=== PATIENT | male | born 1985 | race Caucasian/White ===

== ENCOUNTER → 2020-07-05 07:17 | Outpatient (BNVA) | payer MEDICAID, SELFPAY | PROVIDERS: Visit Provider Nurse Practitioner | DX: Z20.828 Contact with and (suspected) exposure to other viral communicable diseases (principal) | CPT/HCPCS: 87635 ==

== ENCOUNTER 2021-11-20 13:23 | Emergency (ER) | payer MEDICAID, SELFPAY ==
[2021-11-20 13:37] VITALS: BP 149/90; PULSE 101; RESP 16; TEMP 36.7; O2SAT 100; BMI 26.4
--- NOTE | 2021-11-20 14:54 | W.ED.ABDPA2 ---
HPI - Abdominal Pain General: Chief Complaint: Abdominal Pain Stated Complaint: ABD Pain, hard feeling, trouble using restroom Time Seen by Provider: 11/20/21 14:41 Source: patient Mode of arrival: ambulatory Limitations: no limitations History of Present Illness: 36-year-old male presents complaining of abdominal pain nausea. He has episodes intermittently over the last several years. He has been seen for it was started on nausea medicines. Has not had any fever sweats chills no vomiting or diarrhea he does get cramping with it. He notes it is better if he bends over. He does have loose stools associated with it but no hematochezia melena hematemesis or coffee-ground emesis. No dysuria urgency or frequency no hematuria MD elicited complaint: abdominal pain Onset (ago): year(s) (1) Pain Consistency: intermittent Location: Diffuse Severity: mild Quality: cramping Radiation: none Exacerbating factors: other (Laying flat) Relieving factors: other (Bending over) Associated Symptoms: Reports bloating, change in stool character, GI cramping and loose stools; Denies anorexia, belching, change in bowel habits, chills, coffee ground emesis, constipation, diarrhea, dyspepsia, dysuria, excessive flatus, fever(s), heartburn, hematochezia, hematuria, hematemesis, fecal incontinence, melena, nausea, poor appetite, syncope and vomiting Review of Systems Const: Denies: fever(s) or chills ENMT: Denies: throat pain, ear or mastoid pain, nasal discharge or nasal congestion Card: Denies: syncope Resp: Denies: dyspnea, productive cough or non-productive cough GI: Reports: bloating, GI cramping and change in stool character; Denies: nausea, vomiting, hematemesis, coffee ground emesis, heartburn, diarrhea, constipation, belching, excessive flatus, fecal incontinence, change in bowel habits, hematochezia or melena : Denies: dysuria or hematuria Skin/Breast: Denies: rash or pruritus PFSH ED PFSH: Medical History (Updated 11/23/21 @ 10:15 by Howard Thomas DO) Chronic abdominal pain Surgical History (Updated 11/23/21 @ 10:15 by Howard Thomas DO) No pertinent past surgical history Physical Exam Const: GENERAL APPEARANCE: cooperative and comfortable ORIENTATION/CONSCIOUSNESS: Yes awake, Yes oriented to person, Yes oriented to place and Yes oriented to time HENMT: COMMON NORMALS: normocephalic, atraumatic and hearing grossly normal bilaterally HEAD & SCALP: normocephalic and atraumatic Neck/C-Spine: COMMON NORMALS: no JVD Resp: COMMON NORMALS: normal respiratory effort, No retractions, No use of accessory muscles and clear to auscultation bilaterally AUSCULTATION: clear to auscultation bilaterally Cardio: COMMON NORMALS: no JVD, regular rate, regular rhythm and No murmurs present (Cardio) RATE: regular rate RHYTHM: regular rhythm GI: COMMON NORMALS: Soft to palpation and No hepatosplenomegaly present AUSCULTATION: Yes normoactive bowel sounds PALPATION: Yes Soft to palpation, No Tenderness to palpation present (GI), No Guarding due to palpation present (GI) and Yes No hepatosplenomegaly present Extremity: COMMON NORMALS: normal to inspection, capillary refill normal, no clubbing, cyanosis or edema, no calf tenderness and no pedal edema Neuro: SENSORIUM/ORIENTATION: Yes oriented to person, Yes oriented to place and Yes oriented to time Skin: COMMON NORMALS: no rashes or lesions noted GENERAL SKIN EXAM: no rashes or lesions noted Course Vital Signs: Vital signs: Vital Signs Temperature 98.0 F 11/20/21 13:37 Pulse Rate 96 11/20/21 16:29 Respiratory Rate 16 11/20/21 16:29 Blood Pressure 145/88 11/20/21 14:55 Pulse Oximetry 100 11/20/21 16:29 MDM - Abdominal Pain Medical Decision Making And toPatient at this point chronic abdominal pain is start him on a PPI can use emetics as needed bland diet follow-up with primary care or surgery he may benefit from HIDA scan or EGD or further evaluation. Does not appear to be any acute issues at hand at the moment fizzing worsening change symptoms return Medical Records I reviewed the patient's medical records. Lab Data I reviewed the patient's lab results. : 11/20/21 14:52 11/20/21 14:52 Labs/Radiology: Laboratory Results WBC 14.9 10^3/uL (4.0-10.0) H 11/20/21 14:52 RBC 5.61 10^6/uL (4.1-5.3) H 11/20/21 14:52 Hgb 16.8 g/dL (11.7-16.6) H 11/20/21 14:52 Hct 49.1 % (42.0-52.0) 11/20/21 14:52 MCV 87.5 fl (80-94) 11/20/21 14:52 MCH 29.9 pg (28.0-34.0) 11/20/21 14:52 MCHC 34.2 g/dL (30.0-36.0) 11/20/21 14:52 RDW 12.5 % (12.1-15.1) 11/20/21 14:52 Plt Count 325 10^3/cmm (130-400) 11/20/21 14:52 MPV 9.7 fL (7.4-10.4) 11/20/21 14:52 Neut % (Auto) 80.7 % 11/20/21 14:52 Lymph % (Auto) 12.7 % 11/20/21 14:52 [place] % (Auto) 5.7 % 11/20/21 14:52 Eos % (Auto) 0.3 % 11/20/21 14:52 Baso % (Auto) 0.2 % 11/20/21 14:52 Neut # (Auto) 12.05 10^3/uL (1.8-7.7) H 11/20/21 14:52 Lymph # (Auto) 1.9 10^3/uL (0.8-4.8) 11/20/21 14:52 [place] # (Auto) 0.9 10^3/uL (0.2-0.9) 11/20/21 14:52 Eos # (Auto) 0.1 10^3/uL (0.0-0.8) 11/20/21 14:52 Baso # (Auto) 0.0 10^3/uL (0.0-0.1) 11/20/21 14:52 Nucleated RBC % (auto) 0 % 11/20/21 14:52 Nucleated RBCs # 0.0 /100WBC 11/20/21 14:52 Sodium 137 mmol/L (136-145) 11/20/21 14:52 Potassium 4.1 mmol/L (3.5-5.1) 11/20/21 14:52 Chloride 101 mmol/L (98-107) 11/20/21 14:52 Carbon Dioxide 24 mmol/L (22-29) 11/20/21 14:52 Anion Gap 16.1 (5-19) 11/20/21 14:52 BUN 9 mg/dL (6-20) 11/20/21 14:52 Creatinine 1.0 mg/dL (0.7-1.2) 11/20/21 14:52 GFR Calculation 85.5 mL/min (90-130) L 11/20/21 14:52 Glucose 115 mg/dL (65-115) 11/20/21 14:52 Calculated Osmolality 284 mOsm/kg (285-295) L 11/20/21 14:52 Calcium 8.8 mg/dL (8.5-10.5) 11/20/21 14:52 Total Bilirubin 0.7 mg/dL (0.15-1.2) 11/20/21 14:52 AST 15 U/L (0-40) 11/20/21 14:52 ALT 20 U/L (0-41) 11/20/21 14:52 Alkaline Phosphatase 65 IU/L (40-130) 11/20/21 14:52 Total Protein 7.0 g/dL (6.6-8.7) 11/20/21 14:52 Albumin 4.7 g/dL (3.5-5.2) 11/20/21 14:52 Globulin 2.3 g/dL (1.3-4.6) 11/20/21 14:52 Lipase 13 U/L (13-60) 11/20/21 14:52 Urine Color Yellow (Yellow) 11/20/21 14:52 Urine Appearance Clear (CLEAR) 11/20/21 14:52 Urine pH 6.5 (5-7) 11/20/21 14:52 Ur Specific [place] 1.005 (1.005-1.030) 11/20/21 14:52 Urine Protein Neg (Negative) 11/20/21 14:52 Urine Glucose (UA) Norm (Normal) 11/20/21 14:52 Urine Ketones Negative (Negative) 11/20/21 14:52 Urine Blood Neg (Negative) 11/20/21 14:52 Urine Nitrate Negative (Negative) 11/20/21 14:52 Urine Bilirubin Neg (Negative) 11/20/21 14:52 Urine Urobilinogen Norm mg/dL (Negative) 11/20/21 14:52 Ur Leukocyte Esterase Negative (Negative) 11/20/21 14:52 Discharge Plan Discharge Patient Disposition: Home Clinical Impression: Chronic abdominal pain Condition: Stable Prescriptions: New pantoprazole 40 mg tablet,delayed release (DR/EC) 40 mg PO QAM 28 Days Qty: 28 0RF ondansetron HCl 4 mg tablet 4 mg PO Q6H PRN (Reason: nausea and vomiting) Qty: 20 0RF Discharge Orders: Discharge ED (Routine); Ordered 11/20/21 Ordered By: Howard Thomas Discharge Diet: Usual diet Discharge Activity: Increase activity as tolerated Patient Instructions: Abdominal Pain (ED), Opioid Safety Activity Restrictions/Additional Instructions: power plant operations manager will make arrangements for you to establish with Dr. Brooks for further evaluation including possible endoscopy. Coding Level of Care Code ED Coordinator Of [employer] Services for Corey Fwd Exam Comprehensive
[2021-11-20 14:55] VITALS: BP 145/88; PULSE 98; RESP 18; O2SAT 100
[2021-11-20 15:14] LABS: Add Urine Microscopic? NO; Charge for UA Resulting for Rev
[2021-11-20 15:16] LABS: Basophils % 0.2 %; Eosinophils # 0.1 10^3/uL (0.0-0.8); Eosinophils % 0.3 %; Hematocrit 49.1 % (42.0-52.0); Hemoglobin 16.8 g/dL (11.7-16.6); Lymphocytes # 1.9 10^3/uL (0.8-4.8); Lymphocytes % 12.7 %; Mean Corpuscular HGB Conc 34.2 g/dL (30.0-36.0); Mean Corpuscular Hemoglobin 29.9 pg (28.0-34.0); Mean Corpuscular Volume 87.5 fl (80-94); Mean Platelet Volume 9.7 fL (7.4-10.4); Monocytes # 0.9 10^3/uL (0.2-0.9); Monocytes % 5.7 %; Neutrophils # 12.05 10^3/uL (1.8-7.7); Neutrophils % 80.7 %; Nucleated Red Blood Cells % 0 %; Platelet Count 325 10^3/cmm (130-400); Red Blood Count 5.61 10^6/uL (4.1-5.3); Red Cell Distribution Width 12.5 % (12.1-15.1); White Blood Count 14.9 10^3/uL (4.0-10.0)
[2021-11-20] MEDS: ondansetron 2 mg/ML SDV 2 mL 4 MG IVP (15:18)
[2021-11-20] MEDS: lactated ringers 1,000 ML 999 ML IV (15:18)
[2021-11-20 15:19] LABS: Bilirubin Urine Neg (Negative); Blood Urine Neg (Negative); Glucose Urine UA Norm (Normal); Ketones Urine Negative (Negative); Leukocyte Esterase Urine Negative (Negative); Nitrate Urine Negative (Negative); Protein Urine Neg (Negative); Specific Gravity, Urine 1.005 (1.005-1.030); Urine Appearance Clear (CLEAR); Urine Color Yellow (Yellow); Urobilinogen Urine Norm (Negative); pH Urine 6.5 (5-7)
[2021-11-20 15:38] LABS: Alanine Aminotransferase 20 U/L (0-41); Albumin Level 4.7 g/dL (3.5-5.2); Alkaline Phosphatase 65 IU/L (40-130); Anion Gap 16.1 (5-19); Aspartate Amino Transferase 15 U/L (0-40); Blood Urea Nitrogen 9 mg/dL (6-20); Calcium 8.8 mg/dL (8.5-10.5); Carbon Dioxide 24 mmol/L (22-29); Chloride 101 mmol/L (98-107); Globulin 2.3 g/dL (1.3-4.6); Glomerular Filtration Rate 85.5 mL/min (90-130); Glucose 115 mg/dL (65-115); Lipase 13 U/L (13-60); Osmolality Calculated 284 mOsm/kg (285-295); Potassium 4.1 mmol/L (3.5-5.1); Sodium 137 mmol/L (136-145); Total Bilirubin 0.7 mg/dL (0.15-1.2)
[2021-11-20 16:29] VITALS: PULSE 96; RESP 16; O2SAT 100
--- NOTE | 2021-11-22 12:04 | DCPLANNER ---
Addendum entered by Sweetie Lee 12/02/21 16:38: Patient had a follow up appointment scheduled with Dr. Brooks - appointment was cancelled Addendum entered by Sweetie Lee 11/23/21 08:58: Patient has a follow up appointment scheduled for November at 3:[address] [facility] at [facility]. Clinic will call patient with appointment information. Original Note: title search manager had message to schedule a follow up appointment for patient with Dr. Brooks. title search manager sent patients information to the front office staff at [facility]. Patients information will be printed and reviewed. Clinic will call patient with appointment information.
== END 2021-11-20 16:31 | disposition home or self-care (01) ==
PROVIDERS: Physician Assistant; Emergency Provider Family Medicine
DX: R10.9 Unspecified abdominal pain (principal); G89.29 Other chronic pain
CPT/HCPCS: 80053; 81003; 83690; 85025; 96361; 96374; 99283; J2405

== ENCOUNTER → 2024-12-26 15:45 | Outpatient (BNVA) | payer OTHER, SELFPAY | PROVIDERS: Visit Provider Psychiatry & Neurology Psychiatry | DX: F33.2 Major depressive disorder, recurrent severe without psychotic features (principal); F41.1 Generalized anxiety disorder | CPT/HCPCS: 80061; 83036 ==